=== PATIENT | female | born 1980 | race Caucasian/White ===

== ENCOUNTER 2022-02-22 15:29 | Emergency (ER) | payer BC, SELFPAY ==
[2022-02-22 16:10] VITALS: BP 125/80; PULSE 87; RESP 18; TEMP 36.4; O2SAT 99; BMI 35.9
--- NOTE | 2022-02-22 16:31 | ED_ITS ---
HPI - URI/Sore Throat General Time Seen by Provider: 16:31 Date Seen: 02/22/22 Chief Complaint: Cough Stated Complaint: Congested, cough, short of breath Time Seen by Provider: 02/22/22 16:31 Source: patient, RN notes reviewed and old records reviewed Mode of arrival: ambulatory Limitations: no limitations History of Present Illness HPI Narrative: Lore is a 41-year-old female with a history of questionable asthma usually implying her rescue inhaler of albuterol only twice a year who notes ongoing difficulty with breathing and a cough. Patient notes that her child has had similar symptoms and she had the onset of a cough 48 hours ago on MondayFebruary 20. She has been using her inhaler frequently. This is associated with a runny nose but no fever. Patient denies vomiting or abdominal pain. She does feel like he is wheezing. She gets only temporary relief from the use of her albuterol. She notes that her chest gets very tight with the symptoms. No unusual lower extremity edema, history of heart problems or history of lower extremity edema or DVT. Patient notes that she has not been formally diagnosed with asthma but has had wheezing and was given an inhaler. Related Data Home Medications Medication Instructions Recorded Confirmed albuterol sulfate 90 mcg/actuation inhalation 02/22/22 aerosol inhaler cetirizine 10 mg tablet (24Hour 10 mg PO DAILY PRN 02/22/22 02/22/22 Allergy) Previous Rx's Medication Instructions Recorded albuterol sulfate 2.5 mg/0.5 mL 2.5 mg (0.5 mL) inhalation QID PRN 02/22/22 solution for nebulization #30 ea albuterol sulfate 2.5 mg/3 mL 2.5 mg (3 mL) inhalation Q6-8H PRN 02/22/22 (0.083 %) solution for nebulization #75 mL prednisone 20 mg tablet 20 mg PO BID #10 tabs 02/22/22 Allergies Allergy/AdvReac Type Severity Reaction Status Date / Time hydromorphone [From Dilaudid] Allergy Mild Verified 02/22/22 16:15 Review of Systems Status of ROS: Reports: 10 or more systems reviewed and unremarkable except as noted in History and below Const: Denies: fever or chills Eyes: Denies: change in vision ENMT: Denies: throat pain, throat swelling or difficulty swallowing Cardio: Reports: chest pain (Described as tightness but relieved by albuterol) and shortness of breath with exertion Resp: Reports: shortness of breath, cough and wheezing GI: Denies: abdominal pain, nausea, vomiting or difficulty swallowing : Denies: painful urination Musculo: Denies: back pain Neuro: Denies: headache or numbness in extremities Endo: Denies: excessive urination Allergy/Immuno: Reports: wheezing; Denies: throat swelling PFSH [facility] Medical History Allergy-induced asthma Surgical History History of delivery History of mandibular surgery Social History Smoking Status: Never smoker How often do you have a drink containing alcohol: 2-4 times a month AUDIT-C Alcohol total score: 2 Non-prescribed substance use: denies use Exam Narrative: Exam Narrative: Patient is alert and oriented. Prior to my stepping in the room she had significant coughing. It does sound productive. Eyes are clear oral cavity with moist mucous membranes and neck is supple without lymphadenopathy. Heart with regular rate and rhythm. Patient has crackles in the right lower lung base and some mild expiratory wheezing. Heart with a regular rate and rhythm. Abdomen soft. Lower extremities without edema. Const: Vital Signs, click to edit/add: Vital Signs - 24 hr 02/22/22 16:10 Temperature 97.6 F Pulse Rate [Pulse Oximeter] 87 Respiratory Rate 18 Blood Pressure [Ri ght Upper Arm] 125/80 Pulse Oximetry 99 Oxygen Delivery Me thod Room Air Course Course Hospital Course: At this time COVID test is pending. Will add a chest x-ray and DuoNeb. Reevaluation(s) Reevaluation #1: DuoNeb seems to significantly helped cough. Chest x-ray by my read does not show any infiltrates. Did have a discussion with Lore regarding the use of prednisone. Lore states that she is her 3-1/2-year-old and is concerned about continuing this on prednisone. I was able to speak with OB nurses who were able to ascertain that small doses of prednisone were okay with breast feeding. Vital Signs Vital signs: Initial Vital Signs Temperature 97.6 F 02/22/22 16:10 Temperature Source Temporal Artery Scan 02/22/22 16:10 Pulse Rate 87 02/22/22 16:10 Respiratory Rate 18 02/22/22 16:10 Respiratory Effort 02/22/22 16:10 Respiratory Depth Normal 02/22/22 16:10 Respiratory Pattern 02/22/22 16:10 Blood Pressure 125/80 02/22/22 16:10 Blood Pressure Mean 95 02/22/22 16:10 Blood Pressure Position Supine 02/22/22 16:10 Pulse Oximetry 99 02/22/22 16:10 Oxygen Delivery Method 02/22/22 16:10 Vital Signs Temperature 97.6 F 02/22/22 16:10 Pulse Rate 87 02/22/22 16:10 Respiratory Rate 18 02/22/22 16:10 Blood Pressure 125/80 02/22/22 16:10 Pulse Oximetry 99 02/22/22 16:10 Oxygen Delivery Method 02/22/22 16:10 Temperature 97.6 F 02/22/22 16:10 Pulse Rate 87 02/22/22 16:10 Respiratory Rate 18 02/22/22 16:10 Blood Pressure 125/80 02/22/22 16:10 Pulse Oximetry 99 02/22/22 16:10 Oxygen Delivery Method 02/22/22 16:10 MDM - URI/Sore Throat MDM Narrative Medical decision making narrative: 1. URI-patient clearly has viral URI as her son has similar symptoms. She has tested negative for COVID at this time. Recommend [id number] Delsym as a cough medicine. Will also provide nebulizer with albuterol to be used q.4 hours p.r.n.. Patient may continue Zyrtec as per her routine. 2. Reactive airway exacerbation-would recommend prednisone 20 mg p.o. b.i.d. x5 days. 3. Disposition-patient is discharged home. Note that vital signs are without tachycardia or hypoxia or fever. Return or seek medical attention for worsening symptoms. Would recommend recheck of COVID status in 48 hours time. She was negative today but certainly symptoms are suggestive of COVID. Medical Records Attestation: I reviewed the patient's medical records. Lab Data Attestation: I reviewed the patient's lab results. Labs: Lab Results 10/11/22 Range/Units 16:30 SARS-CoV-2 (PCR) Negative SARS-CoV-2 (Negative) Imaging Data Chest x-ray: Attestation: I have reviewed the pertinent imaging results. My impression: Negative for infiltrate Radiologist's impression: Cardiovascular and mediastinum: Heart size and vasculature are normal in caliber and appearance. Lungs and pleural spaces: Lungs are clear. No sign of infiltrate or mass. No sign of pleural effusion. No pneumothorax. Bones and soft tissues: No significant findings. IMPRESSION: Unremarkable chest. Discharge Plan Discharge Clinical Impression: Exacerbation of RAD (reactive airway disease), URI (upper respiratory infection) Patient Disposition: Home, Self-Care Condition: Improved Additional Instructions: Prednisone as directed for 5 days. Albuterol nebulizer as needed every 4 hours. Delsym cough medicine as needed. Return for worsening symptoms. Prescriptions: New albuterol sulfate 2.5 mg/0.5 mL solution for nebulization 2.5 mg inhalation QID PRNQty: 30 0RF prednisone 20 mg tablet 20 mg PO BID Qty: 10 0RF albuterol sulfate 2.5 mg /3 mL (0.083 %) solution for nebulization 2.5 mg inhalation Q6-8H PRNQty: 75 0RF No Action albuterol sulfate 90 mcg/actuation HFA aerosol inhaler INHALATION cetirizine [24Hour Allergy] 10 mg tablet 10 mg PO DAILY PRN Follow Up/Referrals: Bisi Encinas MD [Primary Care Provider] - Stand Alone Forms: [employer] Info Instructions
--- NOTE | 2022-02-22 16:53 | CRLHL7_ITS ---
For Patients: As a result of the Century Cures Act, medical imaging exams and procedure reports are released immediately into your electronic medical record. You may view this report before your referring provider. If you have questions, please contact your health care provider. INDICATION: Cough. TECHNIQUE: Chest 1 view. COMPARISON: None. FINDINGS: Cardiovascular and mediastinum: Heart size and vasculature are normal in caliber and appearance. Lungs and pleural spaces: Lungs are clear. No sign of infiltrate or mass. No sign of pleural effusion. No pneumothorax. Bones and soft tissues: No significant findings. IMPRESSION: Unremarkable chest. Dictated by Сергей Knight MD @ 02/22/2022 6:09:08 PM (Electronically Signed)
[2022-02-22] MEDS: IPRAT-ALBUT 0.5-2.5 MG/3 ML NEB 1 NEB IH (17:13)
[2022-02-22 17:21] LABS: SARS PCR* Negative SARS-CoV-2 (Negative)
== END 2022-02-22 18:57 | disposition home or self-care (01) ==
PROVIDERS: Emergency Provider Family Medicine; PCP Family Medicine
DX: J06.9 Acute upper respiratory infection, unspecified (principal); J45.901 Unspecified asthma with (acute) exacerbation
CPT/HCPCS: 71045; 87635; 94640; 99284

== ENCOUNTER 2022-07-15 21:27 | Emergency (ER) | payer BC, SELFPAY ==
[2022-07-15 21:47] VITALS: BP 137/73; PULSE 89; RESP 18; TEMP 36.8; O2SAT 98; BMI 38.0
--- NOTE | 2022-07-15 21:57 | ED_ITS ---
HPI - SOB/Dyspnea General Chief Complaint: Cough Stated Complaint: Covid +, Oyx down below 80%, pulse was down 242 Time Seen by Provider: 07/15/22 21:47 History of Present Illness HPI Narrative: Pt is a 42 year old woman with a history of asthma who presents on day 5 of COVID. Pt has been feeling fairly well with a controlled cough. Pt has no fever or chills or hemoptysis. Pt checked her oxygen saturation earlier today and found that it was 80% on room air. This improved to normal shortly after with nebulizer treatments. Pt called the ambulance who found that her saturation was normal. Pt now has a saturation of 96% on room air and feels well. Pt is now feeling fine. No other issues. Related Data Home Medications Medication Instructions Recorded Confirmed cetirizine 10 mg tablet (24Hour 10 mg PO DAILY PRN 02/22/22 07/15/22 Allergy) fluticasone 500 mcg-salmeterol 50 1 inh inhalation BID 07/15/22 07/15/22 mcg/dose blistr powdr for inhalation (Advair Diskus) ipratropium 0.5 mg-albuterol 3 mg 3 ml inhalation Q6H PRN 07/15/22 07/15/22 (2.5 mg base)/3 mL nebulization soln nirmatrelvir 300 mg (150 mg 1 ea PO DIRECTED 07/15/22 07/15/22 x2)-ritonavir 100 mg tablet,dose pack(EUA) (Paxlovid) Allergies Allergy/AdvReac Type Severity Reaction Status Date / Time hydromorphone [From Dilaudid] Allergy Mild Verified 07/15/22 21:54 Review of Systems Status of ROS: Reports: 10 or more systems reviewed and unremarkable except as noted in History and below [facility] Medical History (Updated 07/15/22 @ 22:03 by Javon Rocha MD) Allergy-induced asthma Surgical History History of delivery History of mandibular surgery Social History Smoking Status: Never smoker How often do you have a drink containing alcohol: 2-4 times a month AUDIT-C Alcohol total score: 2 Non-prescribed substance use: denies use Exam Narrative: Exam Narrative: EXAM GENERAL: Patient appears comfortable and well. EYES: No scleral icterus. ENT: Tympanic membranes and oropharynx normal. THYROID: no thyroid nodules or thyromegaly. LYMPH: No supraclavicular or cervical lymphadenopathy. SKIN: Visible skin seen during exam normal or with benign process only. EXT: No dependent lower extremity pedal edema. HEART: Regular rate and rhythm with no murmurs, rubs, or gallops. LUNGS: Clear to auscultation bilaterally with no crackles or wheezes. ABD: Soft, non tender, non distended. PSYCH: Good eye contact, speech is not pressured. Const: Vital Signs, click to edit/add: Vital Signs - 24 hr 07/15/22 21:47 Temperature 98.2 F Pulse Rate [Right Pulse Oximeter] 89 Respiratory Rate 18 Blood Pressure [Ri ght Upper Arm] 137/73 Pulse Oximetry 98 Oxygen Delivery Me thod Room Air Course Course Hospital Course: Pt feeling well with normal vital signs. Vital Signs Vital signs: Initial Vital Signs Temperature 98.2 F 07/15/22 21:47 Temperature Source Temporal Artery Scan 07/15/22 21:47 Pulse Rate 89 07/15/22 21:47 Respiratory Rate 18 07/15/22 21:47 Blood Pressure 137/73 07/15/22 21:47 Blood Pressure Mean 94 07/15/22 21:47 Blood Pressure Position Sitting 07/15/22 21:47 Pulse Oximetry 98 07/15/22 21:47 Oxygen Delivery Method 07/15/22 21:47 Vital Signs Temperature 98.2 F 07/15/22 21:47 Pulse Rate 89 07/15/22 21:47 Respiratory Rate 18 07/15/22 21:47 Blood Pressure 137/73 07/15/22 21:47 Pulse Oximetry 98 07/15/22 21:47 Oxygen Delivery Method 07/15/22 21:47 Temperature 98.2 F 07/15/22 21:47 Pulse Rate 89 07/15/22 21:47 Respiratory Rate 18 07/15/22 21:47 Blood Pressure 137/73 07/15/22 21:47 Pulse Oximetry 98 07/15/22 21:47 Oxygen Delivery Method 07/15/22 21:47 MDM - SOB/Dyspnea MDM Narrative Medical decision making narrative: Pt presents with COVID and now a normal saturation on 5 day of her course. Pt feeling well. Exam and vitals normal. Recommend continued current care with follow up prn. Differential Diagnosis Differential diagnosis: Likely acute exacerbation of chronic obstructive airways disease, congestive heart failure, community acquired pneumonia, asthma with exacerbation and pulmonary embolism Medical Records Attestation: I reviewed the patient's medical records. Discharge Plan Discharge Clinical Impression: COVID-19 Patient Disposition: Home, Self-Care Condition: Stable Instructions: COVID-19 (Coronavirus Disease 2019) (ED) Prescriptions: No Action fluticasone propion-salmeterol [Advair Diskus] 500-50 mcg/dose blister with device 1 inh INHALATION BID Label Comments: INHALE 1 DOSE BY MOUTH TWICE DAILY ipratropium-albuterol 0.5 mg-3 mg(2.5 mg base)/3 mL solution for nebulization 3 ml INHALATION Q6H PRN Label Comments: USE 3 ML IN NEBULIZER EVERY 6 HOURS NEEDED FOR SHORTNESS OF BREATH Paxlovid (EUA) 300 mg (150 mg x 2)-100 mg tablets,dose pack 1 ea PO DIRECTED cetirizine [24Hour Allergy] 10 mg tablet 10 mg PO DAILY PRN Follow Up/Referrals: Bisi Encinas MD [Primary Care Provider] - Stand Alone Forms: [employer] Info Instructions
[2022-07-15 22:11] VITALS: PULSE 79; RESP 16; O2SAT 98
[2022-07-15 22:12] VITALS: BP 137/73; PULSE 79; RESP 16; TEMP 36.8
== END 2022-07-15 22:12 | disposition home or self-care (01) ==
LOC: ED 22:06
PROVIDERS: Emergency Provider Internal Medicine; PCP Family Medicine
DX: U07.1 COVID-19 (principal)
CPT/HCPCS: 99282; 99283

== ENCOUNTER 2022-11-16 14:51 | Emergency (ER) | payer BC, SELFPAY ==
[2022-11-16] VITALS (10 sets, daily range): BP systolic 125–146; BP diastolic 78–93; PULSE 66–88; RESP 16; TEMP 37.4; O2SAT 97–99; BMI 35.2
--- NOTE | 2022-11-16 15:29 | ED.GENADULT ---
HPI - General Adult General Time Seen by Provider: 15:31 Date Seen: 11/16/22 Chief complaint: Arrhythmia/Palpitations Stated complaint: Spiking heartrate, tightness in chest Time Seen by Provider: 11/16/22 14:56 Source: patient Mode of arrival: ambulatory Limitations: no limitations History of Present Illness HPI narrative: Patient is a 42-year-old female with history of exercise-induced asthma. She has had a history of irregular heart beat feeling, occasionally up to 125, no chest pain, no real shortness of breath. Patient felt transiently dizzy when this is happening and then feels better now. She is works for [employer], she has had no fevers chills or cough. She feels similar to have an irregular heartbeat like when she had COVID. She does have a temp of 99.3 but her O2 sat is excellent at 99% she has never had any bleeding or clotting problems. She takes albuterol and oral fluconazole some eater all. The patient denies productive cough or any cough no leg swelling or edema. Was going to go to urgent care and then decided come to ED. Related Data Home Medications Medication Instructions Recorded Confirmed cetirizine 10 mg tablet (24Hour 10 mg PO DAILY PRN 02/22/22 11/16/22 Allergy) fluticasone 500 mcg-salmeterol 50 1 inh inhalation BID 07/15/22 07/18/22 mcg/dose blistr powdr for inhalation (Advair Diskus) albuterol sulfate 90 mcg/actuation 2 puff inhalation Q6H PRN 07/18/22 11/16/22 aerosol inhaler Allergies Allergy/AdvReac Type Severity Reaction Status Date / Time hydromorphone [From Dilaudid] Allergy Mild Verified 11/16/22 15:06 Review of Systems Status of ROS: Reports: 6 or more systems reviewed and unremarkable except as noted in History and below [facility] Medical History (Updated 11/16/22 @ 15:35 by Radu Gay MD) Allergy-induced asthma ?J45.909 - Unspecified asthma, uncomplicated (ICD-10) Surgical History History of mandibular surgery ?Z98.890 - Other specified postprocedural states (ICD-10) History of delivery ?Z98.891 - History of uterine scar from previous surgery (ICD-10) Social History Smoking Status: Never smoker How often do you have a drink containing alcohol: 2-4 times a month AUDIT-C Alcohol total score: 2 Non-prescribed substance use: denies use Exam Narrative: Exam Narrative: Objective: Vital signs unremarkable O2 sat 99% on room air temp 99.3? HEENT is unremarkable Neck is supple Chest clear Heart rhythm regular no murmur occasional ectopic beat noted Abdomen benign soft nontender Extremities are no edema neurologic nonfocal Good peripheral perfusion Skin warm and dry Const: Vital Signs, click to edit/add: Vital Signs - 24 hr 11/16/22 15:01 11/16/22 15:17 11/16/22 15:18 Temperature 99.3 F Pulse Rate 76 73 Pulse Rate [Left P ulse Oximeter] 77 Respiratory Rate 16 Blood Pressure 130/93 H Blood Pressure [Le ft Upper Arm] 146/84 H Pulse Oximetry 99 98 97 Oxygen Delivery Me thod Room Air 11/16/22 15:30 11/16/22 15:32 11/16/22 15:45 Temperature Pulse Rate 71 70 88 Pulse Rate [Left P ulse Oximeter] Respiratory Rate Blood Pressure 125/87 Blood Pressure [Le ft Upper Arm] Pulse Oximetry 98 97 98 Oxygen Delivery Me thod 11/16/22 16:00 11/16/22 16:02 11/16/22 16:15 Temperature Pulse Rate 70 68 74 Pulse Rate [Left P ulse Oximeter] Respiratory Rate Blood Pressure 134/78 Blood Pressure [Le ft Upper Arm] Pulse Oximetry 97 97 97 Oxygen Delivery Me thod 11/16/22 16:30 Temperature Pulse Rate 66 Pulse Rate [Left P ulse Oximeter] Respiratory Rate Blood Pressure Blood Pressure [Le ft Upper Arm] Pulse Oximetry 98 Oxygen Delivery Me thod Course Vital Signs Vital signs: Initial Vital Signs Temperature 99.3 F 11/16/22 15:01 Temperature Source Temporal Artery Scan 11/16/22 15:01 Pulse Rate 77 11/16/22 15:01 Pulse Rhythm Regular 11/16/22 15:01 Pulse Strength 3+ Normal 11/16/22 15:01 Respiratory Rate 16 11/16/22 15:01 Blood Pressure 146/84 H 11/16/22 15:01 Blood Pressure Mean 104 11/16/22 15:01 Blood Pressure Position Sitting 11/16/22 15:01 Pulse Oximetry 99 11/16/22 15:01 Oxygen Delivery Method Room Air 11/16/22 15:01 Vital Signs Temperature 99.3 F 11/16/22 15:01 Pulse Rate 77 11/16/22 15:01 Respiratory Rate 16 11/16/22 15:01 Blood Pressure 146/84 H 11/16/22 15:01 Pulse Oximetry 99 11/16/22 15:01 Oxygen Delivery Method Room Air 11/16/22 15:01 Temperature 99.3 F 11/16/22 15:01 Pulse Rate 66 11/16/22 16:30 Respiratory Rate 16 11/16/22 15:01 Blood Pressure 134/78 11/16/22 16:02 Pulse Oximetry 98 11/16/22 16:30 Oxygen Delivery Method Room Air 11/16/22 15:01 Medical Decision Making MDM Narrative Medical decision making narrative: 42-year-old female with history of palpitations, some irregular heartbeat today, history of exercise-induced asthma. Patient has not had any wheezing or cough. She feels similar when she had COVID, so that will be repeated. Her lungs are clear to auscultation. I think be gupta to get a troponin give her aspirin. Will also get a D-dimer heme 4 basic 7, and other labs. I think she would also benefit from a Holter monitor. If her workup is negative then I think a Holter be appropriate. Addendum 4:30 p.m. patient's EKG by my read looks like normal sinus rhythm no acute ST T wave changes. The patient's D-dimer is negative, troponin point of care negative. Lab studies all look reassuring. Patient will get a Holter monitor for an outpatient assessment of any arrhythmia. She has had no arrhythmia in the ER. Recommend recheck with regular doctor in the next 2-3 days, return sooner problems or concerns she was comfortable this plan. Lab Data Labs: Lab Results 11/16/22 11/16/22 Range/Units 15:35 15:42 WBC 5.60 (4.50-11.00) K/uL RBC 4.73 (4.00-5.20) m/uL Hgb 14.3 (12.0-16.0) gm/dL Hct 42.5 (33.0-51.0) % MCV 90 (80-100) fL MCH 30 (26-34) pg MCHC 34 (32-36) gm/dL RDW Coeff of Dinh 11.9 (11.5-15.5) % Plt Count 212 (140-440) K/uL Neut % (Auto) 66.3 (42.0-72.0) % Lymph % (Auto) 23.2 (20-44) % [place] % (Auto) 8.8 (0.0-11.0) % Eos % (Auto) 1.3 (0.0-7.0) % Baso % (Auto) 0.2 (0.0-3.0) % Neut # (Auto) 3.72 (1.7-7.0) K/uL Lymph # (Auto) 1.30 (0.90-2.90) K/uL [place] # (Auto) 0.50 (0.00-0.90) K/UL Eos # (Auto) 0.07 (0.00-0.50) K/uL Baso # (Auto) 0.01 (0.00-0.30) K/uL D-Dimer Quant (PE/DVT) < 0.27 (0.00-0.50) ug/ml Sodium 137 (135-149) mmol/L Potassium 4.5 (3.6-5.1) mmol/L Chloride 100 (96-114) mmol/L Carbon Dioxide 28 (20-32) mmol/L BUN 16 (5-24) mg/dL Creatinine 0.8 (0.5-1.5) mg/dL Estimated Creat Clear 98.05 Estimated GFR 94 ml/min Glucose 105 (60-115) mg/dL Calcium 9.5 (8.4-10.6) mg/dL Total Bilirubin 0.5 (0.1-1.5) mg/dL Direct Bilirubin 0.0 (0.0-0.5) mg/dL AST 23 (12-35) U/L ALT 22 (4-35) U/L Alkaline Phosphatase 57 (40-150) U/L C-Reactive Protein 0.5 (0.5-1.0) mg/dL NT-Pro-B Natriuret Pep 25 pg/mL Total Protein 7.5 (6.0-8.3) g/dL Albumin 4.3 (3.3-5.0) g/dL SARS-CoV-2 (PCR) Negative SARS-CoV-2 (Negative) Influenza Type A (PCR) Negative PCR FLU A (Negative) Influenza Type B (PCR) Negative PCR FLU B (Negative) RSV (PCR) Negative PCR RSV (Negative) POC Troponin I 0.00 L (0.01-0.04) ng/ml Discharge Plan Discharge Clinical Impression: Palpitations, Allergy-induced asthma Patient Disposition: Home, Self-Care Condition: Improved Additional Instructions: Light activity, Holter monitor, drink plenty of fluids, continue her asthma medication. Recheck with primary care in the next 2-3 days, certainly sooner return to ED if problems or concerns. Activity Level: Light activity Discharge Diet: Regular Prescriptions: No Action albuterol sulfate 90 mcg/actuation HFA aerosol inhaler 2 puff inhalation Q6H PRN fluticasone propion-salmeterol [Advair Diskus] 500-50 mcg/dose blister with device 1 inh INHALATION BID Patient Comments: INHALE 1 DOSE BY MOUTH TWICE DAILY cetirizine [24Hour Allergy] 10 mg tablet 10 mg PO DAILY PRN Follow Up/Referrals: Bisi Encinas MD [Primary Care Provider] - Stand Alone Forms: [employer] Info Instructions
[2022-11-16] MEDS: ASPIRIN 81 MG TAB.CHEW 324 MG PO (15:43)
[2022-11-16 15:52] LABS: Basophils Absolute Auto 0.01 K/uL (0.00-0.30); Basophils Percent Auto 0.2 % (0.0-3.0); Eosinophils Absolute Auto 0.07 K/uL (0.00-0.50); Eosinophils Percent Auto 1.3 % (0.0-7.0); Hematocrit 42.5 % (33.0-51.0); Hemoglobin* 14.3 gm/dL (12.0-16.0); Immature Granulocytes Abs Auto 0.01 K/uL (0.00-0.30); Immature Granulocytes Pct Auto 0.2 %; Lymphocytes Percent Auto 23.2 % (20-44); Mean Corpuscular HGB Conc 34 gm/dL (32-36); Mean Corpuscular Hemoglobin 30 pg (26-34); Mean Corpuscular Volume 90 fL (80-100); Monocytes Percent Auto 8.8 % (0.0-11.0); Neutrophils Absolute Auto 3.72 K/uL (1.7-7.0); Neutrophils Percent Auto 66.3 % (42.0-72.0); Platelet Count* 212 K/uL (140-440); RDW Coefficient of Variation % 11.9 % (11.5-15.5); Red Blood Count 4.73 m/uL (4.00-5.20)
[2022-11-16 15:54] LABS: Slide Review Reflex No
[2022-11-16 16:08] LABS: Albumin* 4.3 g/dL (3.3-5.0)
[2022-11-16 16:09] LABS: Chloride* 100 mmol/L (96-114); Potassium* 4.5 mmol/L (3.6-5.1); Sodium* 137 mmol/L (135-149)
[2022-11-16 16:11] LABS: Alkaline Phosphatase* 57 U/L (40-150); Aspartate Amino Transferase* 23 U/L (12-35); Bilirubin Total* 0.5 mg/dL (0.1-1.5); Total Protein* 7.5 g/dL (6.0-8.3)
[2022-11-16 16:12] LABS: Alanine Aminotransferase* 22 U/L (4-35); Creatinine* 0.8 mg/dL (0.5-1.5); Est. Creatinine Clearance* 98.05; Estimated Glomerular Filt Rate 94 ml/min
[2022-11-16 16:13] LABS: Blood Urea Nitrogen* 16 mg/dL (5-24); Calcium* 9.5 mg/dL (8.4-10.6); Carbon Dioxide* 28 mmol/L (20-32); Glucose* 105 mg/dL (60-115)
[2022-11-16 16:16] LABS: C Reactive Protein* 0.5 mg/dL (0.5-1.0)
[2022-11-16 16:19] LABS: D Dimer Quantitative* < 0.27 ug/ml (0.00-0.50)
--- NOTE | 2022-11-16 16:19 | ED.NURSE ---
No tachycardia or ectopy noted thus far on cardiac monitoring.
[2022-11-16 16:27] LABS: NT Pro B Type NatriureticPept* 25 pg/mL
[2022-11-16 16:27] LABS: PCR FLU A Negative PCR FLU A (Negative); PCR FLU B Negative PCR FLU B (Negative); PCR RSV Negative PCR RSV (Negative)
[2022-11-16 16:28] LABS: SARS PCR* Negative SARS-CoV-2 (Negative)
== END 2022-11-16 17:01 | disposition home or self-care (01) ==
LOC: ED 15:39
PROVIDERS: Emergency Provider Family Medicine; PCP Family Medicine
DX: J45.901 Unspecified asthma with (acute) exacerbation (principal)
CPT/HCPCS: 36415; 80048; 80076; 83880; 84484; 85025; 85379; 86140; 87631; 93005; 93225; 93226; 94761; 99284; A9270

== ENCOUNTER 2024-01-03 09:40 | Emergency (ER) | payer BC, SELFPAY ==
[2024-01-03 09:49] VITALS: BP 144/88; PULSE 77; RESP 18; TEMP 36.1; O2SAT 100; BMI 35.4
--- NOTE | 2024-01-03 10:31 | CRLHL7_ITS ---
For Patients: As a result of the Century Cures Act, medical imaging exams and procedure reports are released immediately into your electronic medical record. You may view this report before your referring provider. If you have questions, please contact your health care provider. INDICATION: ABD PAIN TECHNIQUE: CT of the abdomen and pelvis was obtained with 118 mL of Isovue 370 intravenous contrast. Please note that all CT scans at this facility use dose modulation, iterative reconstruction, and/or weight-based dosing when appropriate to reduce radiation dose to as low as reasonably achievable. COMPARISON: None. FINDINGS: Lower thorax: Normal. Liver and biliary tree: Normal. Gallbladder: Normal. Spleen: Normal. Pancreas: Normal. Adrenal glands: Normal. Kidneys and ureters: No hydronephrosis. No obstructing renal calculi. Gastrointestinal tract: Normal appendix. No evidence of bowel obstruction. Peritoneal cavity: Trace free fluid within the pelvis. Bladder: Normal. Pelvic organs: Bilateral adnexal cystic lesions are favored to be physiologic. Vasculature: Normal. Lymph nodes: Normal. Abdominal wall: Trace fat containing periumbilical hernia. Musculoskeletal: Normal. IMPRESSION: 1. No acute intra-abdominal abnormality. 2. Bilateral adnexal cystic lesions are favored to be physiologic. Please note that all CT scans at this facility use dose modulation, iterative reconstruction, and/or weight-based dosing when appropriate to reduce radiation dose to as low as reasonably achievable. Dictated by Hector Rondon MD @ 01/03/2024 11:21:14 AM (Electronically Signed)
--- NOTE | 2024-01-03 10:33 | ED_ITS ---
HPI - General Adult General Chief complaint: Shortness of Breath/Dyspnea Stated complaint: Shortness of breath, nausea Time Seen by Provider: 01/03/24 10:12 History of Present Illness HPI narrative: Patient is a 43-year-old female with history of allergy induced asthma, she had a episode of shortness of breath yesterday was seen in the [facility] urgent care. Had a negative EKG, negative chest x-ray, negative laboratory studies by her report. I obtained records and reviewed them. She has had Holter monitor in the past about a year ago that was negative. She has episodic asthma flares, but it is also associated with shortness of breath. Marli very active day yesterday her was getting follow-up for a heart issue, she felt a little lightheaded and dizzy while at [employer] with her child did not have chest pain to feel short of breath. She had a workup at the urgent care. Few days prior she felt some abdominal distension and bloating and thinks that might have contributed to her shortness of breath. She also reports she gets a ?buzzing? feeling in her mid section chest and in her hands and feet occasionally with this episode. She has not been told she has anxiety or depression, has none of that in her family history. Related Data Home Medications ?Medication ?Instructions ?Recorded ?Confirmed cetirizine 10 mg tablet (24Hour 10 mg PO DAILY PRN 02/22/22 02/24/23 Allergy) fluticasone 500 mcg-salmeterol 50 1 inh inhalation BID 07/15/22 02/24/23 mcg/dose blistr powdr for inhalation (Advair Diskus) albuterol sulfate 90 mcg/actuation 2 puff inhalation Q6H PRN 07/18/22 02/24/23 aerosol inhaler amoxicillin 875 mg-potassium 1 tab PO BID 02/24/23 02/24/23 clavulanate 125 mg tablet epinephrine 0.3 mg/0.3 mL 0.3 ml IM ONCE PRN 02/24/23 02/24/23 injection, auto-injector prednisone 20 mg tablet 20 mg PO BID 02/24/23 02/24/23 Previous Rx's ?Medication ?Instructions ?Recorded benzonatate 200 mg capsule 200 mg PO TID PRN cough #30 caps 02/24/23 Allergies Allergy/AdvReac Type Severity Reaction Status Date / Time hydromorphone [From Dilaudid] Allergy Mild Verified 01/03/24 10:56 Review of Systems Status of ROS: Reports: 6 or more systems reviewed and unremarkable except as noted in History and below [facility] Medical History Allergy-induced asthma ?J45.909 - Unspecified asthma, uncomplicated (ICD-10) Surgical History History of mandibular surgery ?Z98.890 - Other specified postprocedural states (ICD-10) History of delivery ?Z98.891 - History of uterine scar from previous surgery (ICD-10) Social History Smoking Status: Never smoker How often do you have a drink containing alcohol: 2-4 times a month AUDIT-C Alcohol total score: 2 Non-prescribed substance use: denies use Exam Narrative: Exam Narrative: Objective patient's vital signs are largely within normal limits Alert or x3 noncyanotic no respiratory distress HEENT shows equal pupils, no scleral icterus, no facial asymmetry Neck is supple Chest clear no rales or wheezing Heart rhythm regular without murmur Abdomen benign soft nontender she feels it is mildly distended. No palpable masses. No peritonitis. Extremities are no edema, neurologic nonfocal Const: Vital Signs, click to edit/add: Vital Signs - 24 hr 01/03/24 09:49 Temperature 97.0 F L Pulse Rate [Right Pulse Oximeter] 77 Respiratory Rate 18 Blood Pressure [Ri ght Upper Arm] 144/88 H Pulse Oximetry 100 Oxygen Delivery Me thod Room Air Course Vital Signs Vital signs: Initial Vital Signs Temperature 97.0 F L 01/03/24 09:49 Temperature Source Temporal Artery Scan 01/03/24 09:49 Pulse Rate 77 01/03/24 09:49 Respiratory Rate 18 01/03/24 09:49 Blood Pressure 144/88 H 01/03/24 09:49 Blood Pressure Mean 106 H 01/03/24 09:49 Blood Pressure Position Sitting 01/03/24 09:49 Pulse Oximetry 100 01/03/24 09:49 Oxygen Delivery Method Room Air 01/03/24 09:49 Vital Signs Temperature 97.0 F L 08/21/24 09:49 Pulse Rate 77 01/03/24 09:49 Respiratory Rate 18 01/03/24 09:49 Blood Pressure 144/88 H 01/03/24 09:49 Pulse Oximetry 100 01/03/24 09:49 Oxygen Delivery Method Room Air 01/03/24 09:49 Temperature 97.0 F L 01/03/24 09:49 Pulse Rate 77 01/03/24 09:49 Respiratory Rate 18 01/03/24 09:49 Blood Pressure 144/88 H 01/03/24 09:49 Pulse Oximetry 100 01/03/24 09:49 Oxygen Delivery Method Room Air 01/03/24 09:49 Medications Administered Medications: Discontinued Medications Generic Name Dose Route Start Last Admin Trade Name Freq PRN Reason Stop Dose Admin Sodium Chloride 1,000 mls @ 6,000 mls/hr 01/03/24 10:30 01/03/24 11:05 0.9 % Sodium Chloride 1000 Ml IV 01/03/24 10:39 6,000 mls/hr .Q10M MAYTE Administration Medical Decision Making MDM Narrative Medical decision making narrative: [age] year white female with history of allergy induced asthma, with some shortness of breath yesterday and today with a tingling feeling in her extremities. She also has some abdominal bloating feeling. She thinks the abdominal symptoms or contributing her breathing issue. I think at this point would be gupta to check laboratory studies including sees heme 4 D-dimer CRP. I think could be gupta to get his CT scan of her abdomen 2 to make sure stent of mild diverticulitis or other inflammatory condition. If her workup and studies are negative today, I think given her presentation of the buzzing feeling the extremity tingling she should see Dr. Encinas for anxiety issues. Also think it be reasonable for her to take the prednisone she was prescribed as she did as shortness of breath for couple of days given she has history of asthma, she does have nebulizers at home was well. Addendum [address] scan shows physiologic changes the ovaries but no other acute finding. EKG shows normal sinus rhythm possibly left atrial enlargement but type limited quality EKG. Does not appear to show any acute changes. Lab studies look reassuring. I think the patient this point should continue her prednisone that she was to start continue using nebs as needed, recommend talk to Dr. Wisam Schneider about anxiety or other issues relating to her spells of shortness of breath and tingling this. Return to the ED as needed she and her comfortable plan. Lab Data Labs: Lab Results 01/03/24 01/03/24 Range/Units 10:31 10:40 WBC 7.84 (4.50-11.00) K/uL RBC 4.57 (4.00-5.20) m/uL Hgb 13.7 (12.0-16.0) gm/dL Hct 41.0 (33.0-51.0) % MCV 90 (80-100) fL MCH 30 (26-34) pg MCHC 33 (32-36) gm/dL RDW Coeff of Dinh 12.7 (11.5-15.5) % Plt Count 187 (140-440) K/uL Neut % (Auto) 81.5 H (42.0-72.0) % Lymph % (Auto) 13.9 L (20-44) % [place] % (Auto) 4.3 (0.0-11.0) % Eos % (Auto) 0.1 (0.0-7.0) % Baso % (Auto) 0.1 (0.0-3.0) % Neut # (Auto) 6.40 (1.7-7.0) K/uL Lymph # (Auto) 1.10 (0.90-2.90) K/uL [place] # (Auto) 0.30 (0.00-0.90) K/UL Eos # (Auto) 0.01 (0.00-0.50) K/uL Baso # (Auto) 0.01 (0.00-0.30) K/uL Abs Immat Gran (auto) 0.01 (0.00-0.30) K/uL Imm/Tot Granulo (auto) 0.1 % D-Dimer Quant (PE/DVT) 0.28 (0.00-0.50) ug/ml Sodium 138 (135-149) mmol/L Potassium 3.8 (3.6-5.1) mmol/L Chloride 106 (96-114) mmol/L Carbon Dioxide 24 (20-32) mmol/L Anion Gap 8 (7-15) mEq/L BUN 15 (5-24) mg/dL Creatinine 0.8 (0.5-1.5) mg/dL Estimated Creat Clear 93.78 Estimated GFR 93 ml/min Glucose 128 H (60-115) mg/dL Calcium 9.3 (8.4-10.6) mg/dL Total Bilirubin 0.7 (0.1-1.5) mg/dL Direct Bilirubin 0.2 (0.0-0.5) mg/dL AST 24 (12-35) U/L ALT 19 (4-35) U/L Alkaline Phosphatase 68 (40-150) U/L C-Reactive Protein < 0.5 L (0.5-1.0) mg/dL NT-Pro-B Natriuret Pep 98 pg/mL Total Protein 7.2 (6.0-8.3) g/dL Albumin 4.3 (3.3-5.0) g/dL SARS-CoV-2 (PCR) Negative SARS-CoV-2 (Negative) Influenza Type A (PCR) Negative PCR FLU A (Negative) Influenza Type B (PCR) Negative PCR FLU B (Negative) RSV (PCR) Negative PCR RSV (Negative) POC Troponin I 0.00 L (0.01-0.04) ng/ml Discharge Plan Discharge Clinical Impression: Allergy-induced asthma, Abdominal bloating Patient Disposition: Home w/ Parent or Adult Condition: Stable Additional Instructions: Light diet for 48 hours, fluids, start the prednisone, use nebs as needed, talk to her doctor about anxiety or other issues related year spells the been having. Return to ED as needed. Activity Level: Light activity Prescriptions: No Action albuterol sulfate 90 mcg/actuation HFA aerosol inhaler 2 puff inhalation Q6H PRN amoxicillin-pot clavulanate 875-125 mg tablet 1 tab PO BID prednisone 20 mg tablet 20 mg PO BID epinephrine 0.3 mg/0.3 mL auto-injector 0.3 ml IM ONCE PRN benzonatate 200 mg capsule 200 mg PO TID PRN (Reason: cough) Qty: 30 0RF fluticasone propion-salmeterol [Advair Diskus] 500-50 mcg/dose blister with device 1 inh INHALATION BID Patient Comments: INHALE 1 DOSE BY MOUTH TWICE DAILY cetirizine [24Hour Allergy] 10 mg tablet 10 mg PO DAILY PRN Follow Up/Referrals: Bisi Encinas MD [Primary Care Provider] - Stand Alone Forms: [employer] Info Instructions
[2024-01-03 10:50] LABS: Basophils Absolute Auto 0.01 K/uL (0.00-0.30); Basophils Percent Auto 0.1 % (0.0-3.0); Eosinophils Absolute Auto 0.01 K/uL (0.00-0.50); Eosinophils Percent Auto 0.1 % (0.0-7.0); Hemoglobin* 13.7 gm/dL (12.0-16.0); Immature Granulocytes Abs Auto 0.01 K/uL (0.00-0.30); Immature Granulocytes Pct Auto 0.1 %; Lymphocytes Percent Auto 13.9 % (20-44); Mean Corpuscular HGB Conc 33 gm/dL (32-36); Mean Corpuscular Hemoglobin 30 pg (26-34); Mean Corpuscular Volume 90 fL (80-100); Monocytes Percent Auto 4.3 % (0.0-11.0); Neutrophils Percent Auto 81.5 % (42.0-72.0); Platelet Count* 187 K/uL (140-440); RDW Coefficient of Variation % 12.7 % (11.5-15.5); Red Blood Count 4.57 m/uL (4.00-5.20); White Blood Count* 7.84 K/uL (4.50-11.00)
[2024-01-03 10:52] LABS: Slide Review Reflex No
[2024-01-03] MEDS: 0.9 % SODIUM CHLORIDE 1000 ml 1,000 ML 6000 ML IV (11:05)
[2024-01-03 11:11] LABS: Albumin* 4.3 g/dL (3.3-5.0); Chloride* 106 mmol/L (96-114)
[2024-01-03 11:12] LABS: Potassium* 3.8 mmol/L (3.6-5.1); Sodium* 138 mmol/L (135-149)
[2024-01-03 11:14] LABS: Creatinine* 0.8 mg/dL (0.5-1.5); Est. Creatinine Clearance* 93.78; Estimated Glomerular Filt Rate 93 ml/min
[2024-01-03 11:15] LABS: Alanine Aminotransferase* 19 U/L (4-35); Alkaline Phosphatase* 68 U/L (40-150); Anion Gap 8 mEq/L (7-15); Aspartate Amino Transferase* 24 U/L (12-35); Bilirubin Direct* 0.2 mg/dL (0.0-0.5); Bilirubin Total* 0.7 mg/dL (0.1-1.5); Blood Urea Nitrogen* 15 mg/dL (5-24); Carbon Dioxide* 24 mmol/L (20-32); Glucose* 128 mg/dL (60-115); Total Protein* 7.2 g/dL (6.0-8.3)
[2024-01-03 11:16] LABS: Calcium* 9.3 mg/dL (8.4-10.6)
[2024-01-03 11:26] LABS: PCR FLU A Negative PCR FLU A (Negative); PCR FLU B Negative PCR FLU B (Negative); PCR RSV Negative PCR RSV (Negative); SARS PCR* Negative SARS-CoV-2 (Negative)
[2024-01-03 11:27] LABS: C Reactive Protein* < 0.5 mg/dL (0.5-1.0); NT Pro B Type NatriureticPept* 98 pg/mL
[2024-01-03 11:59] LABS: D Dimer Quantitative* 0.28 ug/ml (0.00-0.50)
== END 2024-01-03 12:18 | disposition home or self-care (01) ==
PROVIDERS: Emergency Provider Family Medicine; PCP Family Medicine
DX: J45.998 Other asthma (principal); R14.0 Abdominal distension (gaseous)
CPT/HCPCS: 36415; 74177; 80048; 80076; 83880; 84484; 85025; 85379; 86140; 87631; 93005; 94761; 99284; 99285; J7030; Q9967

== ENCOUNTER 2024-11-23 12:07 | Emergency (ER) | payer BC, SELFPAY ==
[2024-11-23] VITALS (7 sets, daily range): BP systolic 120–132; BP diastolic 70–83; PULSE 56–97; RESP 10–18; TEMP 36.7; O2SAT 97–100; BMI 34.0
--- OUTSIDE RECORDS SUMMARY | 2024-11-23 12:09 | XMS_ITS | Clinical Summary ---
Author Organization [employer] Address [address] [place] [id number] Care Team Providers Care Procurement Specialist Name Role Phone Bisi Encinas MD Primary Care Prov ider Allergies Active Allergy Reactions Criticality Noted Date Comments Adhesive Contact Dermatitis,Intoleran ce-Can't Take,Irritation At Patch Site,Itching,Other - Describe In Comment Field 01/02/2024 Hydromorphone Hypotension 11/03/2016 Dust Mites Cough,Runny Nose Latex 04/13/2009 Ragweed Cough Sheep/Ovine/Irvin Containing Products Hives,Rash,Itching,C ough,Other - Describe In Comment Field,Wheezing Sheep Dander Sodium Hypochlorite Solution 08/25/2009 Bleach reaction-- swelling and severe eye irritation as well as lung irritation causing asthma flare Medications cetirizine (ZYRTEC) 10 mg tabletIndication s:Allergic rhinitis, cause unspecified Take 1 tablet by mouth once daily. 90 tablet 4 07/16/19 11 Active multivitamin-fol ic acid 0.4 mg (MULTIPLE VITAMIN) tablet Take 1 tablet by mouth once daily. 90 tablet 4 07/16/19 11 Active cholecalciferol (VITAMIN D) 1,000 unit capsule Take by mouth once daily. 1-2 daily for vit d deficiency and pain issues 180 capsule 4 07/16/19 11 Active inhalational spacing deviceIndication s:Cough, unspecified type For home use. Use with inhaler 1 Each 03/03/20 22 Active nebulizer accessories kitIndications:C ough, unspecified type Nebulizer mask/tubing/suppl ies For home use. Length of need: prn 1 Kit 04/11/20 23 Active albuterol HFA (PRO-AIR; VENTOLIN; PROVENTIL) 90 mcg/actuation inhalerIndicatio ns:Chest tightness Inhale 1-2 Puffs by mouth every 4 hours if needed for Shortness Of Breath or Wheezing. 1 Each 01/02/20 24 Active albuterol HFA 90 mcg/actuation inhalerIndicatio ns:Acute sinusitis, recurrence not specified, unspecified location Inhale 2 Puffs by mouth every 6 hours if needed for Shortness Of Breath. HOLD until patient calls 25.5 g 5 08/29/19 25 Active EPINEPHrine 0.3 mg/0.3 mL auto-injectorInd ications:Allergy to animal dander Inject 0.3 mg (1 Pen) intramuscular each time if needed for Allergic Reaction. HOLD until patient calls 2 Each 3 08/29/19 25 Active fluticasone furoate (Arnuity Ellipta) 100 mcg/actuation inhalerIndicatio ns:Exacerbation of asthma, unspecified asthma severity, unspecified whether persistent (HC) Inhale 1 Puff by mouth once daily. HOLD until patient calls 30 Each 08/29/19 25 Active hydrOXYzine HCL 25 mg tabletIndication s:Anxiety Take 1 Tablet (25 mg) by mouth every 6 hours if needed for Anxiety. HOLD until patient calls 30 Tablet 1 08/29/19 25 Active olopatadine 0.1 % ophthalmic solutionIndicati ons:Allergic conjunctivitis, bilateral Place 1 Drop into both eyes two times daily. 5 mL 08/29/19 25 Active ketorolac 0.5 % ophthalmic solutionIndicati ons:Allergic conjunctivitis, bilateral Place 1 Drop into both eyes four times daily. 10 mL 08/29/19 25 Active albuterol-ipratr opium (2.5-0.5 mg) in 3 mL NEBULIZATION solutionIndicati ons:Cough, unspecified type Inhale 3 mL via a nebulizer every 6 hours if needed for Shortness Of Breath. HOLD until patient calls 180 mL 3 08/29/19 25 Active albuterol 0.083% (2.5 mg/3 mL) neb solutionIndicati ons:Chest tightness,SOB (shortness of breath) Inhale 3 mL (2.5 mg) via a nebulizer every 4 hours if needed for Shortness Of Breath. HOLD until patient calls 180 mL 2 08/29/19 25 Active Active Problems Problem Noted Date Diagnosed Date Exacerbation of asthma 08/28/2024 Mixed hyperlipidemia 07/10/2023 Vitamin D deficiency 07/10/2023 Supervision of high-risk pre gnancy of elderly multigravida (>= 35 years old at time of delivery) 01/22/2018 Overview (08/08/2018): Estimated Date of Delivery: 08/30/18 Patient's last menstrual period was 07/24/2017. Last Tdap- 06/25/2018 Last Flu vaccine- 02/26/2018 Glucose (GTT) result- Component Latest Ref Rng & Units 05/28/2018 HEMOGLOBIN 12.0 - 16.0 g/dL 12.1 MCV 80 - 100 fL 94 GLUCOSE,GESTATIONAL 65 - 139 mg/dL 164 (H) Component Latest Ref Rng & Units 07/30/2018 08/06/2018 HEMOGLOBIN 12.0 - 16.0 g/dL 12.3 MCV 80 - 100 fL 92 Culture No Group B Streptococcus isolated. Allergies Allergen Reactions Dilaudid [Hydromorphone] Hypotension Dust Mites Cough and Runny Nose Latex Ragweed Cough Sheep/Ovine Containing Products Hives, Rash, Itching, Cough, Other - Describe In Comment Field and Wheezing Sheep Dander Sodium Hypochlorite Solution Bleach reaction-- swelling and severe eye irritation as well as lung irritation causing asthma flare Obstetric History T0 L0 SAB0 TAB0 Ectopic0 Multiple0 Live Births0 # Outcome Date GA Lbr James/2nd Weight Sex Delivery Anes PTL Lv 2 Current 1 AB 8w0d SPONTANEOUS FD Create lab flowsheet for OB labs- Component Latest Ref Rng & Units 01/22/2018 01/22/2018 01/22/2018 10:21 AM 10:21 AM 10:21 AM HEMOGLOBIN 12.0 - 16.0 g/dL 14.5 MCV 80 - 100 fL 90 ANTIBODY SCREEN Negative Negative SPECIMEN EXPIRATION DATE/TIME 01/25/18 23:59 VARICELLA ZOSTER IGG ANTIBODY Positive 837.7 RUBELLA IGG ANTIBODY HIV-1/HIV-2 ANTIBODY Non-Reactive Non-Reactive ABORH B Rh Positive HBSAG Nonreactive Nonreactive TREPONEMA PALLIDUM Negative Negative HEPATITIS C ANTIBODY Non-Reactive Non-Reactive Component Latest Ref Rng & Units 01/22/2018 01/22/2018 10:21 AM 10:21 AM HEMOGLOBIN 12.0 - 16.0 g/dL MCV 80 - 100 fL ANTIBODY SCREEN Negative SPECIMEN EXPIRATION DATE/TIME VARICELLA ZOSTER IGG ANTIBODY RUBELLA IGG ANTIBODY Positive 1.03 HIV-1/HIV-2 ANTIBODY Non-Reactive ABORH HBSAG Nonreactive TREPONEMA PALLIDUM Negative HEPATITIS C ANTIBODY Non-Reactive Past Medical History: Diagnosis Date ALLERGIC RHINITIS CAUSE UNSPECIFIED 11/21/2006 ASCUS with positive high risk HPV cervical 05/2015 [place]: TAMMIE 1 Low grade squamous intraepith lesion on cytologic smear cervix (lgsil) 11/2004 colp confirmed CIN1 reactive cellular changes since OBESITY 11/21/2006 BMI 33.8 TMJ DISORDRS OTHER SPECF 11/21/2006 improved Past Surgical History: Procedure Laterality Date COLPOSCOPY 07/03/2015 TAMMIE 1, Plan: Cotest @ 12 months, due 06/2016`~ Cotesting: both Negative, Plan: Cotest 07/2019 XR TEMPROMANDIBULAR JOINTS BILATERAL 2003 No data on file. Prenancy #2 Problems (from 01/22/18 to present) No problems associated with this episode. Ana Cristina Andres RNC.....01/24/2018 7:54 AM Female infertility associated with male factors 02/13/2016 TAMMIE I (cervical intraepithelial neoplasia I) Overview (04/02/2021): 11/2004 LSIL 01/2005 [place]: TAMMIE I 06/2005 NIL 03/2006 NIL 06/2008 NIL 06/2009 NIL 07/2010 ASCUS/HPV Negative 08/2011 NIL 08/2012 NIL 08/2013 NIL 05/2015 ASCUS/HPV+ 06/2015 [place]: TAMMIE I 08/2016 NIL/HPV Negative 08/2017 NIL 02/2021 NIL/HPV negative Plan: Routine screening ASCUS with positive high risk HPV cervical 05/15 Overview (08/29/2016): [place]: TAMMIE 1, cotest 05/2016 Pain medication agreement 11/21/2011 Chronic neck pain 05/25/2009 Pain Related to Psychological and Medical factor s. 05/19/2009 Other specified temporomandibular joint disorder s 11/21/2006 Obesity, unspecified 11/21/2006 Overview (11/21/2006): BMI 33.8 Allergic rhinitis, cause unspecified 11/21/2006 Resolved Problems Problem Noted Date Diagnosed Date Resolved Date Moderate persistent asthma with exacerbation 4 07/24/2024 ASCUS with positive high risk HPV cervical 05/15/2015 08/29/2016 Overview (08/26/2016): [place]: TAMMIE 1 Encounters Date Type Department Care Team Description 08/28/2024 3:20 PM CDT Office Visit [facility] [address] [place] [address] Bisi Encinas MD Physical (44 yo female) 08/27/2024 Travel from Last 3 Months Immunizations Immunization Administration Dates Next Due COVID-19 VACCINE SPIKEVAX (M ODERNA 50MCG/0.5ML) 12YO+ PFS 04/05/2023 COVID-19 vaccine (Pfizer-Bio NTech 30mcg/0.3mL) 12YO+ BIVALENT PF, MDV 02/16/2022 COVID-19 vaccine (Pfizer-Bio NTech 30mcg/0.3mL) PF, MDV 03/03/2021,08/15/2020,07/25/2020 Hepatitis A (Adult) 11/19/2004,05/03/2004 Hepatitis B (Adult) 11/19/2004,06/22/2004,2003 INFLUENZA, IIV3 PF (AGE >= 6 MO) 03/16/2024 Influenza, IIV3 (Age >=3 years) 05/28/2012,02/10 Influenza, IIV4 04/05/2023, 2,03/08/2021,2019,02/25/2019,02/26/2018,06/26/2017,0 02/12/2016,06/23/2015 MMR 08/26/2018,03/12/1991 Td (Age >=7 Years) 05/03/2004 Tdap 06/25/2018,08/16/2011 Family History Medical History Relation Name Comments Hyperlipidemia Father Dad Hypertension Father Dad Cancer Maternal Aunt Cervical Cancer Maternal Grandmother Cervica l Hypertension Maternal Grandmother Other Maternal Grandmother pacemak er age 87 Allergies Mother Mom Good Health Mother Mom Cancer Other Cervical M Grea t grandmother Allergies Sister Sister Psychiatric illness Sister Sister ADHD Relation Name Status Comments Father Dad Alive Maternal Aunt Maternal Grandmother Mother Mom Alive Other Sister Sister Social History Tobacco Use Types Packs/Day Years Used Date Smoking Tobacco: Never Smokeless Tobacco: Never Tobacco Cessation:Counseling Given: Yes Alcohol Use Standard Drinks/Week Comments Yes 0 (1 standard drink = 0.6 oz pur e alcohol) Maybe once a month PHQ-2 Answer Date Recorded PHQ-2 TOTAL SCORE 0 08/28/2024 Social Connections Answer Date Recorded Do you often feel lonely or isolated from those around you? 0 07/24/2024 Financial Resource Strain Answer Date R ecorded Difficulty of Paying Living Expenses 3 07/24/2024 Difficulty of Paying Living Expenses Not on file 07/24/2024 Food Insecurity Answer Date Recorded Do you worry your food will run out before you are able to buy more? 1 07/24/2024 Transportation Needs Answer Date Record ed Does lack of transportation keep you from medica l appointments? 1 07/24/2024 Does lack of transportation keep you from work, meetings or getting things that you need? 1 07/24/2024 Housing Stability Answer Date Recorded What is your housing situation today? 1 07/24/2024 Utilities Answer Date Recorded Do you have trouble paying f or utilities (for example, heat, electricity, water, phone)? 1 07/24/2024 Comments No Sex and Gender Information Value Date Recorded Sex Assigned at Female 09/15/2020 7:06 AM CDT Legal Sex Female 5:25 AM [employer] Gender Identity Female 09/15/2020 7:06 AM CDT Sexual Orientation Not on file Obstetrics History Para Term AB IAB SAB Ectopic Multiple Livin g Live Births 2 1 1 1 Date Outcome GA Total Labor Labor/2nd/3rd Weight Sex Type Anes PTL Zamzam A1 A5 Name Clin AB 8w0 d SPONTA NEOUS Demis e Comments:Trisomy 13 no felisha on testing 019 Term 39w 1d Last Filed Vital Signs Vital Sign Reading Time Taken Comments Blood Pressure 138/82 08/28/2024 3:22 PM CDT Pulse 70 08/28/2024 3:22 PM CDT Temperature 36.6 C (97.9 F) 01/02/2024 7:02 PM CDT Respiratory Rate 18 01/02/2024 7:02 PM CDT Oxygen Saturation 100% 08/28/2024 3:22 PM CDT Inhaled Oxygen Concentration - - Weight 105.1 kg (231 lb 9.6 oz) 08/28/2024 3:22 PM CDT Height 175.9 cm (5' 9.25) 08/28/2024 3:22 PM CD T Body Mass Index 33.95 08/28/2024 3:22 PM CDT Plan of Treatment Health Maintenance Due Date Last Done Comments Colonoscopy through age 75 2024 Mammogram for age 45-75 2024 Influenza Vaccine (#1) 2025 , 04/05/2023, 02/16/2022, Additional history exists BMI (ht and wt on same day) for age 18+ 08/28/2025 08/28/2024, 07/10/2023, 03/11/2021, Additional history exists Depression screening for age 12+ 08/28/2025 08/28/2024, 07/10/2023, 03/11/2021, Additional history exists Pap test for age 21-65 03/11/2026 , 03/11/2021, 08/21/2017, Additional history exists Tetanus booster 06/25/2028 06/25/2018, 04/0 07/2011, 05/03/2004 Lipids for age 45-75 07/24/2028 07/25/2023, 11/23/2022, 08/15/2016, Additional history exists Hepatitis B series for 19+ Completed 11/19, 06/22/2004, 05/03/2004 HIV for age 15-65 Completed 01/22/2018, 10/17/2016 Hepatitis C screening for age 18-79 Completed 01/22/2018, 10/17/2016 COVID-19 vaccine series Completed 03/16/20 24, 04/05/2023, 02/16/2022, Additional history exists Pneumococcal series for age 6-49 Aged Out No longer eligible based on patient's age to complete this topic Procedures Procedure Name Priority Date/Time Associated Diagnosis Comments LIPID PANEL W REFLEX MEASURED LDL Routine 07/25/2023 7:50 AM CDT Mixed hyperlipidemia HPV HIGH RISK Routine 03/11/2021 4:24 PM CDT Pap smear for cervical cancer screening ANTI HIV 1/2 Routine 01/22/2018 10:21 AM CDT Supervision of high-risk of elderly multigravida (>= 35 years old at time of delivery) (HC) ANTI HCV Routine 01/22/2018 10:21 AM CDT Supervision of high-risk of elderly multigravida (>= 35 years old at time of delivery) (HC) from Last 3 Months or Most Recently Relevant to Health Maintenance Results * LIPID PANEL W REFLEX MEASURED LDL (07/25/2023 7:50 AM CDT) CHOLESTEROL,TOTAL 174 100 - 199 mg/dL 07/25/2023 5:54 PM CDT [facility] Comment: Cholesterol, Total Reference Ranges Desirable <200 mg/dL Borderline 200-239 mg/dL High >=240 mg/dL TRIGLYCERIDES 134 <150 mg/dL 07/25/2023 5:54 PM CDT [facility] HDL CHOLESTEROL 53 >40 mg/dL 5:54 PM CDT [facility] NON-HDL CHOLESTEROL 121 <145 mg/dl 07/25/2023 5:54 PM CDT [facility] CHOL/HDL RATIO 3.28 <4.50 07/25/2023 5:54 PM CDT [facility] LDL CHOLESTEROL 94 <=130 mg/dL 07/25/2023 5:54 PM CDT [facility] VLDL CHOLESTEROL 27 <=30 mg/dL 07/25/2023 5:54 PM CDT [facility] PROVIDER ORDERED STATUS RANDOM 07/25/2023 5:54 PM CDT [facility] Blood BLOOD SPECIMEN / Unknown Venipuncture / Unknown 07/25/2023 7:50 AM CDT 07/25/2023 7:52 AM CDT Elle LÓPEZ CHEMISTRY Final Res ult [facility] [address] [place] [address], * HPV HIGH RISK (03/11/2021 4:24 PM CDT) TYPE 16 Negative Negative 03/16/2021 11:34 AM CDT [facility] TYPE 18 Negative Negative 03/16/2021 11:34 AM CDT [facility] OTHER HIGH RISK TYPES Negative Negative 03/16/2021 11:34 AM CDT [facility] Other (Cervical) Non-Blood / Unknown 03/11/2021 4:24 PM CDT 03/12/2021 11:37 AM CDT Narrative [facility] - 03/16/2021 11:34 AM CDT HPV types 16, 18, 31, 33, 35, 39, 45, 51, 52, 56, 58, 59, 66 and 68 DNA were undetectable or below the pre-set threshold. Methodology: Mattie Orlando 4800 HPV Test Bisi Encinas MD MICROBIOLOGY Fi nal Result [facility] [address] [place] [address], [place] * ANTI HCV (01/22/2018 10:21 AM CDT) HEPATITIS C ANTIBODY Non-React lyubov Non-React lyubov 01/22/2018 5:20 PM CDT [facility] Comment:Antibodies to HCV no t detected; does not exclude the possibility of exposure to HCV. Blood BLOOD SPECIMEN / Unknown Venipuncture / Unknown 01/22/2018 10:21 AM CDT 01/22/2018 10:21 AM CDT Bisi Encinas MD SEND OUTS Fi nal Result Performing Organization Address City/[facility]/ZIP Co de Phone Number [facility] [address] [place] [address], * ANTI HIV 1/2 (01/22/2018 10:21 AM CDT) HIV-1/HIV-2 ANTIBODY Non-Reacti ve Non-Reacti ve 01/22/2018 5:24 PM CDT [facility] Comment:HIV-1 p24 and HIV-1/ HIV-2 Ab not detected. Blood BLOOD SPECIMEN / Unknown Venipuncture / Unknown 01/22/2018 10:21 AM CDT 01/22/2018 10:22 AM CDT Bisi Encinas MD SEND OUTS Fi nal Result Performing Organization Address [facility] Co de Phone Number [facility] [address] from Last 3 Months or Most Recently Relevant to Health Maintenance Insurance [facility] [place] WORKERS COMP WC WORKERS COMP * Guarantor: [employer] Account Type Relation to Patient Date of Phone Billing Address Personal/Family Employer Care Teams Procurement Specialist Relationship Specialty Start Date End Date Bisi Encinas MD [address] [facility] [id number] PCP - General Family Practice 07/15/11
--- NOTE | 2024-11-23 12:33 | ED.ALLEREA ---
HPI - Allergic Reaction General Time Seen by Provider: 12:33 Date Seen: 11/23/24 Chief complaint: Allergic Reaction Stated complaint: allergic reaction, used epipen Time Seen by Provider: 11/23/24 12:32 Source: patient and RN notes reviewed Mode of arrival: ambulatory Limitations: no limitations History of Present Illness HPI narrative: This 44-year-old female is coming in with tingling sensation and itching in her mouth. She was eating a yogurt with pineapple and passion fruit in it around 930 this morning when she started having symptoms of mouth tingling and itching. She later developed a swollen lip. She presumed it was pineapple that she was reacting to. She did take hydroxyzine 25 mg at 10:00 a.m., has this at home for anxiety. She subsequently took 2 Benadryl at 10:50 a.m. at home. Around 11:10 a.m. she did use an EpiPen that was made available to her. Her symptoms did improve. EMS was called but she did sign and come by private vehicle. She did notice the return of itchy sensation in her mouth starting to come back. She does not feel any swelling. She had no rash. She had no difficulty breathing. She felt a little nauseated earlier but no abdominal pain, no nausea now, no vomiting ever. She has never had an allergic reaction to food before. Does have some reported seasonal allergies. She has never had anything like this before. MD complaint: allergic reaction and facial swelling Related Data Home Medications ?Medication ?Instructions ?Recorded ?Confirmed cetirizine 10 mg tablet (24Hour 10 mg PO DAILY PRN 02/22/22 02/24/23 Allergy) fluticasone 500 mcg-salmeterol 50 1 inh inhalation BID 07/15/22 02/24/23 mcg/dose blistr powdr for inhalation (Advair Diskus) albuterol sulfate 90 mcg/actuation 2 puff inhalation Q6H PRN 07/18/22 11/23/24 aerosol inhaler epinephrine 0.3 mg/0.3 mL 0.3 ml IM ONCE PRN 02/24/23 02/24/23 injection, auto-injector hydroxyzine HCl 25 mg tablet 25 mg PO Q6H PRN anxiety 11/23/24 11/23/24 Previous Rx's ?Medication ?Instructions ?Recorded epinephrine 0.3 mg/0.3 mL 0.3 mg (0.3 mL) IM Q5-15M PRN #2 ea 11/23/24 injection, auto-injector prednisone 20 mg tablet 20 mg PO DAILY #3 tabs 11/23/24 Allergies Allergy/AdvReac Type Severity Reaction Status Date / Time hydromorphone (From Dilaudid) Allergy Mild Verified 01/03/24 10:56 Review of Systems Status of ROS Reports: 6 or more systems reviewed and unremarkable except as noted in History and below [facility] Medical History Allergy-induced asthma ?J45.909 - Unspecified asthma, uncomplicated (ICD-10) Surgical History History of mandibular surgery ?Z98.890 - Other specified postprocedural states (ICD-10) History of delivery ?Z98.891 - History of uterine scar from previous surgery (ICD-10) Social History Smoking Status: Never smoker How often do you have a drink containing alcohol: 2-4 times a month AUDIT-C Alcohol total score: 2 Non-prescribed substance use: denies use Exam Const: Vital Signs, click to edit/add: Vital Signs - 24 hr 11/23/24 12:20 11/23/24 12:21 11/23/24 12:30 Temperature 98.0 F Pulse Rate 75 Pulse Rate [Pulse Oximeter] 97 Respiratory Rate 18 Blood Pressure Blood Pressure [Ri ght Upper Arm] 132/83 Pulse Oximetry 99 97 97 Oxygen Delivery Me thod Room Air 11/23/24 13:00 11/23/24 13:30 11/23/24 14:27 Temperature Pulse Rate 65 62 62 Pulse Rate [Pulse Oximeter] Respiratory Rate 10 L Blood Pressure 120/70 Blood Pressure [Ri ght Upper Arm] Pulse Oximetry 100 98 99 Oxygen Delivery Me thod 11/23/24 15:00 Temperature Pulse Rate 56 L Pulse Rate [Pulse Oximeter] Respiratory Rate Blood Pressure Blood Pressure [Ri ght Upper Arm] Pulse Oximetry 99 Oxygen Delivery Me thod This 44-year-old female is alert, interactive, no apparent distress. She is ambulatory into the ED of her own accord. Pupils equal round reactive, sclerae clear, face atraumatic, no rash. There is no noted lip swelling, oropharynx appears normal, no tongue or oral pharyngeal swelling. Her posterior pharynx is normal. Her voice is completely normal, no hoarseness. Neck supple, no adenopathy, no thyromegaly masses or nodules. Lungs are clear, good air entry, no wheezing or crackles, no tachypnea, no accessory muscle use. CV regular rate and rhythm, no murmur, normal S1-S2. Abdomen is soft, nontender, nondistended, no organomegaly. Skin visualized without any rash, certainly no hives noted. Documenting provider has reviewed patient's vital signs: yes Course Course ED Course: Reviewed with Lore that this certainly sounds like allergic reaction. It presumably may be pineapple but have discussed with her that she should take up photo copy of the listed ingredients, probably avoid these foods. I would recommend allergy follow-up for further testing at some point. While here, she will be monitored on pulse oximetry and cardiac monitoring to ensure no recurrence of reaction. Given that she is feeling a little sensation in her mouth do think we should do IV Benadryl which I will give 25 mg, 40 mg oral prednisone, 20 mg IV Pepcid in 10 mg oral Zyrtec. Plan will be to watch for 4 hours and if she remains symptom free, will discharge at that time. Reevaluation(s) Time of Reevaluation #1: 13:57 Reevaluation #1: Patient is feeling back to baseline. The symptoms that were ?creeping up on her? when she got here are all gone. We discussed monitoring for a total of 4 hours from the epinephrine injection. She is fine with that. Vital Signs Vital signs: Initial Vital Signs Pulse Oximetry 99 11/23/24 12:20 Vital Signs Pulse Oximetry 99 11/23/24 12:20 Temperature 98.0 F 11/23/24 12:21 Pulse Rate 56 L 11/23/24 15:00 Respiratory Rate 10 L 11/23/24 14:27 Blood Pressure 120/70 11/23/24 14:27 Pulse Oximetry 99 11/23/24 15:00 Oxygen Delivery Method Room Air 11/23/24 12:21 Medications Administered Medications: Discontinued Medications Generic Name Dose Route Start Last Admin Trade Name Dharmesh PRN Reason Stop Dose Admin Cetirizine HCl 10 mg 11/23/24 12:39 11/23/24 12:53 Cetirizine Hcl 10 Mg Tablet PO 11/23/24 12:40 10 mg ONCE ONE Administration Diphenhydramine HCl 25 mg 11/23/24 12:38 11/23/24 13:00 Diphenhydramine 50 Mg/Ml Inj IVP 11/23/24 12:39 25 mg ONCE ONE Administration Famotidine 20 mg 11/23/24 12:38 11/23/24 12:56 Famotidine 10 Mg/Ml Inj IVP 11/23/24 12:39 20 mg ONCE ONE Administration Prednisone 40 mg 11/23/24 12:38 11/23/24 12:53 Prednisone 20 Mg Tablet PO 11/23/24 12:39 40 mg ONCE ONE Administration Discharge Plan Discharge Clinical Impression: Allergic reaction Patient Disposition: Home, Self-Care Condition: Stable Instructions: General Allergic Reaction (ED) Additional Instructions: I do recommend that you follow-up with your primary care provider within the next week, discuss referral for allergy consultation for further testing. Do recommend taking a picture of the ingredients of what you were eating when you had this reaction. You can provide this information to your physician or time recorder. Do recommend taking prednisone as prescribed for a couple more days, next dose due tomorrow. I also recommend taking 10 mg of Claritin or Zyrtec daily for the next 3 days starting tomorrow. Have sent prescription in for EpiPen to be used for any recurrent reaction. If you do need to use your EpiPen, it is recommended that you seek medical evaluation. Activity Level: No Restrictions Prescriptions: New epinephrine 0.3 mg/0.3 mL auto-injector 0.3 mg IM Q5-15M PRNQty: 2 0RF Rx Instructions: do not exceed 3 doses per episode prednisone 20 mg tablet 20 mg PO DAILY Qty: 3 0RF No Action albuterol sulfate 90 mcg/actuation HFA aerosol inhaler 2 puff inhalation Q6H PRN epinephrine 0.3 mg/0.3 mL auto-injector 0.3 ml IM ONCE PRN fluticasone propion-salmeterol [Advair Diskus] 500-50 mcg/dose blister with device 1 inh INHALATION BID Patient Comments: INHALE 1 DOSE BY MOUTH TWICE DAILY cetirizine [24Hour Allergy] 10 mg tablet 10 mg PO DAILY PRN hydroxyzine HCl 25 mg tablet 25 mg PO Q6H PRN (Reason: anxiety) Follow Up/Referrals: Bisi Encinas MD [Primary Care Provider, Family Practice] Stand Alone Forms: [facility] Info Instructions
[2024-11-23] MEDS: CETIRIZINE HCL 10 MG TABLET PO (12:53)
[2024-11-23] MEDS: FAMOTIDINE 10 MG/ML inj 20 MG IVP (12:56)
== END 2024-11-23 15:10 | disposition home or self-care (01) ==
PROVIDERS: Emergency Provider Family Medicine; PCP Family Medicine
DX: T78.1XXA Other adverse food reactions, not elsewhere classified, initial encounter (principal); R20.2 Paresthesia of skin
CPT/HCPCS: 94761; 96374; 96375; 99283; 99284; A9270; J1200; J1308; J7512

== ENCOUNTER 2024-12-24 13:47 | Emergency (ER) | payer BC, SELFPAY ==
--- OUTSIDE RECORDS SUMMARY | 2024-12-24 13:50 | XMS_ITS | Clinical Summary ---
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 HOLD until patient calls 30 Each 11 08/29/19 25 Active hydrOXYzine HCL 25 mg [...] calls 180 mL 2 08/29/19 25 Active ondansetron (ZOFRAN) 4 mg tablet Take 4 mg by mouth every 8 hours if needed for Nausea/Vomiting. 11/26/19 25 Active Active Problems Problem Noted Date [...] with positive high risk HPV cervical 05/2015 [place]: TAMMIE 1 Low grade squamous intraepith lesion [...] problems associated with this episode. 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 TAMMIE I (cervical intraepithelial neoplasia I) Overview (04/02/2021): 11/2004 LSIL 01/2005 [place]: TAMMIE I 06/2005 NIL 03/2006 NIL 06/2008 NIL 06/2009 NIL 07/2010 ASCUS/HPV Negative 08/2011 NIL 08/2012 NIL 08/2013 NIL 05/2015 ASCUS/HPV+ 06/2015 [place]: TAMMIE I 08/2016 NIL/HPV Negative 08/2017 NIL 02/2021 NIL/HPV negative Plan: Routine screening ASCUS with positive high risk HPV cervical 05/15 Overview (08/29/2016): [place]: TAMMIE 1, cotest 05/2016 Pain medication agreement [...] risk HPV cervical 05/15/2015 08/29/2016 Overview (08/26/2016): [place]: TAMMIE 1 Encounters Date Type Department Care Team Description 12/08/2024 [facility] [address] [place], [place] [id number] Tanmay Sheriff MD Results 12/02/2024 10:00 AM CDT Office Visit [facility] [address] [place] [address] Tanmay Sheriff MD Allergies (FOOD ALLERGY (referred by Carmencita Colvin)) 12/01/2024 Travel 11/29/2024 9:00 AM CDT Office Visit [facility] [address] [place] [address] Carmencita Colvin PA ER Follow up (Allergic reaction, throat is still feeling irritated and having GI irritation/diarrhea. lots of nausea and bloating) 11/29/2024 Travel from Last 3 Months Immunizations Immunization Administration Dates Next Due COVID-19 VACCINE SPIKEVAX (M ODERNA 50MCG/0.5ML) 12YO+ PFS 04/05/2023 COVID-19 vaccine (FPW EnteprisesBio NTech 30mcg/0.3mL) 12YO+ BIVALENT PF, MDV 02/16/2022 COVID-19 vaccine (Pfizer-Bio NTech 30mcg/0.3mL) PF, MDV 03/03/2021,08/15/2020,07/25/2020 Hepatitis A (Adult) 11/19/2004,05/03/2004 Hepatitis B (Adult) 11/19/2004,06/22/2004,2003 INFLUENZA, IIV3 PF (AGE >= 6 MO) 03/16/2024 Influenza, IIV3 (Age >=3 years) 05/28/2012,02/10 Influenza, IIV4 04/05/2023,,03/08/2021,2019,02/25/2019,02/26/2018,06/26/2017,0 02/12/2016,06/23/2015 MMR 08/26/2018,03/12/1991 Td (Age >=7 Years) [...] AM CDT 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 Gender Identity Female 09/15/2020 7:06 AM CDT [...] Sign Reading Time Taken Comments Blood Pressure 126/76 12/02/2024 10:03 AM CDT Pulse 57 12/02/2024 10:03 AM CDT Temperature 36.9 C (98.5 F) 12/02/2024 10:03 AM CDT Respiratory Rate 18 01/02/2024 7:02 PM CDT Oxygen Saturation 100% 12/02/2024 10:03 AM CDT Inhaled Oxygen Concentration - - Weight 101.6 kg (224 lb) 12/02/2024 10:03 AM CDT Height 175.9 cm (5' 9.25) 12/02/2024 10:03 AM C DT Body Mass Index 32.84 12/02/2024 10:03 AM CDT Plan of Treatment Health Maintenance Due Date Last Done Comments Colonoscopy through age 75 2024 Mammogram for age 45-75 2024 Influenza Vaccine (#1) 2025 , 04/05/2023, 02/16/2022, Additional history exists Depression screening for age 12+ 08/28/2025 08/28/2024, 07/10/2023, 03/11/2021, Additional history exists BMI (ht and wt on same day) for age 18+ 12/02/2025 12/02/2024, 08/28/2024, 07/10/2023, Additional history exists Pap test for age 21-65 03/11/2026 , 03/11/2021, 08/21/2017, Additional history exists Tetanus booster 06/25/2028 06/25/2018, 04/0 07/2011, 05/03/2004 Lipids for age 45-75 07/24/2028 07/25/2023, 11/23/2022, 08/15/2016, Additional history exists Hepatitis B series for 19+ Completed 11/19, 06/22/2004, 05/03/2004 HIV for age 15-65 Completed 01/22/2018, 10/17/2016 Hepatitis C screening for age 18-79 Completed 01/22/2018, 10/17/2016 COVID-19 vaccine series Completed 03/16/20, 04/05/2023, 02/16/2022, Additional history exists Pneumococcal series for age 6-49 Aged Out No longer eligible based on patient's age to complete this topic Procedures Procedure Name Priority Date/Time Associated Diagnosis Comments BIRCH (T3) IGE Routine 12/02/2024 10:45 AM CDT Food allergy AVOCADO IGE Routine 12/02/2024 10:45 AM CDT Food allergy PINEAPPLE IGE Routine 12/02/2024 10:45 AM CDT Food allergy ARIK IGE Routine 12/02/2024 10:45 AM CDT Food allergy PEANUT (F13) IGE Routine 12/02/2024 10:4 5 AM CDT Food allergy [facility] MISCELLANEOUS SENDOUT Routine 12/02/2024 10:44 AM CDT Food allergy MISCELLANEOUS SEND OUT Routine 12/02/2024 10:44 AM CDT Food allergy LIPID PANEL W REFLEX MEASURED LDL Routine [...] Recently Relevant to Health Maintenance Results * ARIK IGE (12/02/2024 10:45 AM CDT) ARIK FRUIT (F91) IGE <0.10 kU/L [facility] ARIK FRUIT (F91) IGE CLASS 0 [facility] Blood BLOOD SPECIMEN / Unknown 12/02/2024 10:45 AM CDT 12/02/2024 10:46 AM CDT Tanmay Sheriff MD LABORATORY Final Resu lt [facility] [address] [place] [address], [facility] [address] [place] [address] * PINEAPPLE IGE (12/02/2024 10:45 AM CDT) PINEAPPLE (F210) IGE <0.10 kU/L [facility] PINEAPPLE (F210) IGE CLASS 0 [facility] Blood BLOOD SPECIMEN / Unknown 12/02/2024 10:45 AM CDT 12/02/2024 10:46 AM CDT Tanmay Sheriff MD SEND OUTS Final Resu lt Performing Organization Address [facility]/ZIP Co de Phone Number [employer] [facility] [address] [place] [address], [facility] [address] [place] [address] * AVOCADO IGE (12/02/2024 10:45 AM CDT) AVOCADO (F96) IGE <0.10 kU/L [facility] AVOCADO (F96) IGE CLASS 0 [facility] INTERPRETATION [facility] Comment: Specific Level of Allergen IGE Class kU/L Specific IGE Antibody ----- --------- 0 <0.10 Absent/Undetectable 0/1 0.10-0.34 Very Low Level 1 0.35-0.69 Low Level 2 0.70-3.49 Moderate Level 3 3.50-17.4 High Level 4 17.5-49.9 Very High Level 5 50-100 Very High Level 6 >100 Very High Level The clinical relevance of allergen results of 0.10-0.34 kU/L are undetermined and intended for specialist use. Allergens denoted with a include results using one or more analyte specific reagents. In those cases, the test was developed and its analytical performance characteristics have been determined by [employer]. It has not been cleared or approved by the U.S. Food and Drug Administration. This assay has been validated pursuant to the CLIA regulations and is used for clinical purposes. Blood BLOOD SPECIMEN / Unknown 12/02/2024 10:45 AM CDT 12/02/2024 10:46 AM CDT Tanmay Sheriff MD SEND OUTS Final Resu lt Performing Organization Address [facility]/ZIP Co de Phone Number [employer] [facility] [address] [place] [address], [place] [phone] [facility] [address] [place] [address] * BIRCH (T3) IGE (12/02/2024 10:45 AM CDT) BIRCH (T3) IGE <0.10 kU/L [facility] BIRCH (T3) IGE CLASS 0 [facility] Blood BLOOD SPECIMEN / Unknown 12/02/2024 10:45 AM CDT 12/02/2024 10:46 AM CDT Tanmay Sheriff MD SEND OUTS Final Resu lt [facility] [address] [facility] [place] [address], [place] [phone] [facility] [address] [facility] [place] [address] * PEANUT (F13) IGE (12/02/2024 10:45 AM CDT) Pathologist [facility] PEANUT (F13) IGE <0.10 kU/L [facility] PEANUT (F13) IGE CLASS 0 [facility] Blood BLOOD SPECIMEN / Unknown 12/02/2024 10:45 AM CDT 12/02/2024 10:46 AM CDT Tanmay Sheriff MD SEND OUTS Final Resu lt [facility] [address] [place] [address], [place] [phone] [facility] [address] [facility] [place] [address] * [facility] MISCELLANEOUS SENDOUT (12/02/2024 10:44 AM CDT) [facility] MISCELLANEOUS SEND OUT COMMENT 12/04/2024 4:08 PM CDT [facility] Comment: Test Ordered: [id number] Passion Fruit IgE Passion Fruit IgE <0.10 kU/L 01 Reference Range: <0.35 Class Interpretation 0 01 The test method is the [employer] ImmunoCAP allergen-specific IgE system. CLASS INTERPRETATION <0.10 kU/L= 0, Negative; 0.10 - 0.34 kU/L= 0/1, Equivocal/Borderline; 0.35 - 0.69 kU/L=1, Low Positive; 0.70 - 3.49 kU/L=2, Moderate Positive; 3.50 - 17.49 kU/L=3, High Positive; 17.50 - 49.99 kU/L= 4, Very High Positive; 50.00 - 99.99 kU/L= 5, Very High Positive; >99.99 kU/L=6, Very High Positive *This test was developed and its performance characteristics determined by [employer]. It has not been cleared or approved by the U.S. Food and Drug Administration. FLAG Interpretation: A = Abnormal, H = High, L = Low Other (Other) Non-Blood / Unknown 12/02/2024 10:44 AM CDT 12/02/2024 10:44 AM CDT Narrative [facility] ([facility]) - 12/04/2024 4:08 PM CDT Performed At: [address] [place] [address] [address] [place], [place] [id number] Mitchell George PhDBC Ph:[phone] Performed At: [address] [id number] Samantha Jefferson MD Ph:[phone] us Tanmay Sheriff MD LABORATORY Final Resu lt [facility] ([facility]) [address] [place] [id number] * MISCELLANEOUS SEND OUT (12/02/2024 10:44 AM CDT) TEST NAME Passion fruit, IgE 12/03/2024 7:20 AM CDT [facility] [employer] LABORAT[facility]-CE NTRAL LABORAT[facility] SOURCE Serum 12/03/2024 7:20 AM CDT [facility] LABORATORY PERFORMING LAB [facility] 12/03/2024 7:20 AM CDT [facility] LABORATORY REFERRAL LAB TEST # [id number] 12/03/2024 7:20 AM CDT [facility] LABOR[facility]ORY IS THIS A [facility] TEST? Yes, See [facility] Miscellaneous Sendout result 12/03/2024 7:20 AM CDT [facility] LAB[facility] Is this a Shannon Test? No 12/03/2024 7:20 AM CDT [facility] Other (Other) Non-Blood / Unknown 12/02/2024 10:44 AM CDT 12/02/2024 10:44 AM CDT us Tanmay Sheriff MD SEND OUTS Final Resu lt [facility] [address] [place] [address], * LIPID PANEL W REFLEX MEASURED LDL (07/25/2023 7:50 AM CDT) CHOLESTEROL,TOTAL 174 100 - 199 mg/dL 07/25/2023 5:54 PM CDT [facility] TRAL LABORATORY Comment: Cholesterol, Total Reference Ranges Desirable <200 mg/dL Borderline 200-239 mg/dL High >=240 mg/dL TRIGLYCERIDES 134 <150 mg/dL 07/25/2023 5:54 PM CDT [facility] TRAL LABORATORY HDL CHOLESTEROL 53 >40 mg/dL 5:54 PM CDT [facility] NON-HDL CHOLESTEROL 121 <145 mg/dl 07/25/2023 5:54 PM CDT [facility] CHOL/HDL RATIO 3.28 <4.50 07/25/2023 5:54 PM CDT [facility] LDL CHOLESTEROL 94 <=130 mg/dL 07/25/2023 5:54 PM CDT [facility] LAB[facility] VLDL CHOLESTEROL 27 <=30 mg/dL 07/25/2023 5:54 PM CDT [facility] LAB[facility] PROVIDER ORDERED STATUS RANDOM 07/25/2023 5:54 PM CDT [facility] Blood BLOOD SPECIMEN / Unknown Venipuncture / Unknown 07/25/2023 7:50 AM CDT 07/25/2023 7:52 AM CDT Elle LÓPEZ CHEMISTRY Final Res ult [facility] [address] [place] [address], * HPV HIGH RISK (03/11/2021 4:24 PM CDT) TYPE 16 Negative Negative 03/16/2021 11:34 AM CDT [facility] TRA LABORATORY TYPE 18 Negative Negative 03/16/2021 11:34 AM CDT [facility] OTHER HIGH RISK TYPES Negative Negative 03/16/2021 11:34 AM CDT [facility] Other (Cervical) Non-Blood / Unknown 03/11/2021 4:24 PM CDT 03/12/2021 11:37 AM CDT Narrative [facility] - 03/16/2021 11:34 AM CDT HPV types 16, 18, 31, 33, 35, 39, 45, 51, 52, 56, 58, 59, 66 and 68 DNA were undetectable or below the pre-set threshold. Methodology: Mattie Orlando 4800 HPV Test Bisi Encinas MD MICROBIOLOGY Fi nal Result [facility] [address] [place] [address], * ANTI HCV (01/22/2018 10:21 AM CDT) HEPATITIS C ANTIBODY Non-React lyubov Non-React lyubov 01/22/2018 5:20 PM CDT [facility] Comment:Antibodies to HCV no t detected; does not exclude the possibility of exposure to HCV. Blood BLOOD SPECIMEN / Unknown Venipuncture / Unknown 01/22/2018 10:21 AM CDT 01/22/2018 10:21 AM CDT Bisi Encinas MD SEND OUTS Fi nal Result [facility] [address] * ANTI HIV 1/2 (01/22/2018 10:21 AM CDT) HIV-1/HIV-2 ANTIBODY Non-Reacti ve Non-Reacti ve 01/22/2018 5:24 PM CDT [facility] TR[facility] LABORAT[facility] Comment:HIV-1 p24 and HIV-1/ HIV-2 Ab not detected. Blood BLOOD SPECIMEN / Unknown Venipuncture / Unknown 01/22/2018 10:21 AM CDT 01/22/2018 10:22 AM CDT Bisi Encinas MD SEND OUTS Fi nal Result Performing Organization Address [facility] Co de Phone Number [facility] [address] from Last 3 Months or Most Recently Relevant to Health Maintenance Insurance 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
--- NOTE | 2024-12-24 13:51 | ED_ITS ---
HPI - General Adult General Date Seen: 12/24/24 Chief complaint: Allergic Reaction Stated complaint: Allergic reaction,tongue swelling Time Seen by Provider: 12/24/24 13:50 History of Present Illness HPI narrative: 44 yo F presenting to the ER today with concern for allergic reaction and tongue swelling. Per medical record she was seen here in the ER about 2 weeks ago with a tingling sensation and itching in her mouth that occurred after she ate some yogurt with pineapple and passion fruit. Apparently the dictation she did not have any swelling. No rash. No trouble breathing. Her physician notes she did not have any objective visible swelling. Treated with IV Benadryl an oral prednisone. Recommended follow-up for allergy testing. Patient reports that she did have some ongoing GI upset lasting for a couple of weeks after laughs episode. She did see an branding specialist and initial testing was all negative for any allergies. She has a follow-up appointment scheduled which is can have further skin testing to see which she may be reacting to. She also has a lot of social stress. Her is a big source of stress for her. She also has a stressful job. It sounds like her relationship her is very difficult and she is anticipating a likely divorce. It sounds like he has chronic pain in his been difficult to live with for years. He then underwent a cardiac arrest about 6 months ago. He had a very long hospital stay and was finally discharged home from his [facility]CU rehab a couple of months ago. She notes that he is very anhedonic and not motivated. He is really not doing his PT your his physical therapy. He mostly stays on the couch. He does not participate in house work. He does not have a job. She feels like he has been relying her to care for him. Her or she was feeling normal this morning. She has not had any new meds, new allergies, new foods. She ate lunch at noon. She had repeated bread, hominis, all of tamponade which is something that she normally eats every day and in fact she had yesterday. After lunch she began to feel tingly burning in her tongue and noted it was swollen. It was swollen on both sides. She took Benadryl 50 mg p.o. and came here to the ER. She did not take her EpiPen. Now that she is here she says her tongue is going back to normal. She has no other symptoms today. No throat swelling. No trouble breathing. No chest pain. No abdominal pain. No nausea vomiting. No rash or hives. Related Data Home Medications ?Medication ?Instructions ?Recorded ?Confirmed cetirizine 10 mg tablet (24Hour 10 mg PO DAILY PRN 04/0511/25/24 Allergy) fluticasone 500 mcg-salmeterol 50 1 inh inhalation BID 07/15/22 11/25/24 mcg/dose blistr powdr for inhalation (Advair Diskus) albuterol sulfate 90 mcg/actuation 2 puff inhalation Q 6H PRN 07/18/22 11/25/24 aerosol inhaler epinephrine 0.3 mg/0.3 mL 0.3 ml IM ONCE PRN 02/24/23 11/25/24 injection, auto-injector hydroxyzine HCl 25 mg tablet 25 mg PO Q6H PRN anxiety 11/23/24 11/25/24 Previous Rx's ?Medication ?Instructions ?Recorded epinephrine 0.3 mg/0.3 mL 0.3 mg (0.3 mL) IM Q5-15M KS N #2 ea 11/23/24 injection, auto-injector prednisone 20 mg tablet 20 mg PO DAILY #3 tabs 11/23 ondansetron HCl 4 mg tablet 4 mg PO Q8H PRN nausea and 11/25/24 vomiting #14 tabs prednisone 20 mg tablet 60 mg (3 x 20 mg) PO DAILY 3 days 12/24/24 #9 tabs Allergies Allergy/AdvReac Type Severity Reaction Status Date / Time hydromorphone (From Dilaudid) Allergy Mild Verified 11/25/24 08:57 adhesive Allergy Verified 11/25/24 08:58 Bleach (Sodium Hypochlorite) Allergy Verified 11/25/24 08:58 latex Allergy Verified 11/25/24 08:58 [facility] Medical History Allergy-induced asthma ?J45.909 - Unspecified asthma, uncomplicated (ICD-10) Surgical History History of mandibular surgery ?Z98.890 - Other specified postprocedural states (ICD-10) History of delivery ?Z98.891 - History of uterine scar from previous surgery (ICD-10) Social History Smoking Status: Never smoker How often do you have a drink containing alcohol: 2-4 times a month AUDIT-C Alcohol total score: 2 Non-prescribed substance use: denies use Exam Narrative: Exam Narrative: Constitutional: Appears well-developed and well-nourished. Alert. Conversant. Non toxic. HENT: Head: Atraumatic. Nose: Nose normal. Mouth/Throat: Oral mucosa is clear and moist. no trismus. Pharynx normal. Tonsils symmetric. No tonsillar enlargement, erythema, or exudate. No tongue swelling or angioedema. Lips normal. Posterior oropharynx normal. Mallampati grade 2 Eyes: Conjunctivae normal. EOM normal. Pupils equal, round, and reactive to light. No scleral icterus. Neck: Normal range of motion. Neck supple. No tracheal deviation present. Cardiovascular: Normal rate, regular rhythm. No gallop. No friction rub. No murmur heard. Symmetric radial artery pulses Pulmonary/Chest: Effort normal. No stridor. No respiratory distress. No wheezes. No rales. No rhonchi . No tenderness. Abdominal: Soft.. No distension. No mass. No tenderness. No rebound. No guarding. Musculoskeletal: RUE: Normal range of motion. No tenderness. No deformity LUE: Normal range of motion. No tenderness. No deformity RLE: Normal range of motion. No edema. No tenderness. No deformity LLE: Normal range of motion. No edema. No tenderness. No deformity Lymph: No cervical adenopathy. Neurological: Alert and oriented to person, place, and time. Normal strength. CN II-VII intact. No sensory deficit. GCS eye subscore is 4. GCS verbal subscore is 5. GCS motor subscore is 6. Normal coordination Skin: Skin is warm and dry. No rash noted. No pallor. Normal capillary refill. Psychiatric: Normal mood. Normal affect. Endorses a lot of stress and frustration with her . Const: Vital Signs, click to edit/add: Vital Signs - 24 hr 12/24/24 13:55 12/24/24 15:26 Temperature 97.9 F Pulse Rate [Pulse Oximeter] 84 61 Respiratory Rate 18 18 Blood Pressure [Ri t Upper Arm] 137/82 124/86 Pulse Oximetry 97 97 Oxygen Delivery Me thod Room Air Room Air Course Course ED Course: Recheck-. Doing well. Tongue swelling resolved. Reevaluation(s) Reevaluation #1: Recheck-. Continues do well. She is comfortable discharging home with her sister. Vital Signs Vital signs: Initial Vital Signs Respiratory Effort Normal, Spontaneous, Non-Labored 12/24/24 13:48 Respiratory Depth Normal 12/24/24 13:48 Respiratory Pattern Normal 12/24/24 13:48 Vital Signs Temperature 97.9 F 12/24/24 13:55 Pulse Rate 84 12/24/24 13:55 Respiratory Rate 18 12/24/24 13:55 Blood Pressure 137/82 12/24/24 13:55 Pulse Oximetry 97 12/24/24 13:55 Oxygen Delivery Method Room Air 12/24/24 13:55 Temperature 97.9 F 12/24/24 13:55 Pulse Rate 61 12/24/24 15:26 Respiratory Rate 18 12/24/24 15:26 Blood Pressure 124/86 12/24/24 15:26 Pulse Oximetry 97 12/24/24 15:26 Oxygen Delivery Method Room Air 12/24/24 15:26 Medications Administered Medications: Discontinued Medications Generic Name Dose Route Start Last Admin Trade Name Freq PRN Reason Stop Dose Admin Prednisone 60 mg 12/24/24 14:29 12/24/24 14:38 Prednisone 20 Mg Tablet PO 12/24/24 14:30 60 mg ONCE ONE Administration Medical Decision Making [facility] Narrative Medical decision making narrative: Very pleasant 44-year-old female presenting to the ER today with an episode of tongue swelling that happened a couple of hours prior to arrival shortly after she had eaten lunch. She did not eat any new or unusual food and has no other new medications or exposures. She describes having tongue swelling. She had a similar episode about a month ago where she had swelling of her lips. She does not have any other symptoms today such as hives, trouble breathing, bronchospasm, wheezing on exam, abdominal pain, GI symptoms, other swollen body parts. Blood pressure is stable with no evidence for anaphylactic shock. Diffe rential here is broad including possible allergic reaction although with only isolated tongue swelling consider other etiologies such as angioedema. She says her tongue was definitely swollen home but is now gone back to normal after she took 50 mg of Benadryl at home. There is no objective swelling on initial and serial exams here in the ER and no signs of any evolving swelling or allergic reaction over several hours of observation here in the ER. Differential would also include anxiety attack causing circumoral numbness. She does have a lot of stressors, in particular with her 's poor health and they are strange relationship. There is no signs of any tongue infection or intraoral infection or Gerald's angina. No evidence for swelling of other airway structures such as the po sterior oropharynx or glottis. Overall, her airway definitely seems to be patent and her tongue is normal for several hours here in the ER. No signs of any evolving life-threatening allergic reaction or angioedema. With reasonable clinical confidence I think she is safe for careful monitoring at home. Since she did take antihistamine prior to arrival, would have her continue on and histamines for few more days and also steroids. She has not needed any EpiPen. She does have 1 home and can use it if she does develop signs of worsening swelling. Would recommend using her EpiPen and return to the ER with any worsening symptoms . Even if she gets better would recommend follow-up with her branding specialist and PCP. If her allergy testing ultimately comes back negative, may need to workup for potential causes of angioedema. Discharge Plan Discharge Clinical Impression: Tongue swelling Patient Disposition: Home, Self-Care Condition: Stable Instructions: Angioedema (ED), General Allergic Reaction (ED) Additional Instructions: As we discussed, I am glad that your tongue swelling has resolved. At this point it is not clear what caused your symptoms. This may have been an allergic reaction, but that is not a definitive diagnosis at this time since there is no other symptoms to go with the allergic reaction (such as hives, asthma attack, or anaphylactic shock). It is possible that your tongue swelling may have been related to another conditions such as angioedema. Here in the ER it is impossible to know for sure what caused this. For the next few days will put you back on some prednisone in case this was an allergic reaction. Continue to use her antihistamines if needed. Use your EpiPen if you have significant tongue swelling, oral swelling, or trouble breathing. Return to the ER right away if you need to use her EpiPen, or if youhave any worsening or concerning symptoms. Please follow-up with your regular doctor and/or your branding specialist for recheck within the next 5-7 days. Prescriptions: New prednisone 20 mg tablet 60 mg PO DAILY 3 Days Qty: 9 0RF No Action albuterol sulfate 90 mcg/actuation HFA aerosol inhaler 2 puff inhalation Q6H PRN epinephrine 0.3 mg/0.3 mL auto-injector 0.3 ml IM ONCE PRN ondansetron HCl 4 mg tablet 4 mg PO Q8H PRN (Reason: nausea and vomiting) Qty: 14 0RF fluticasone propion-salmeterol [Advair Diskus] 500-50 mcg/dose blister with device 1 inh INHALATION BID Patient Comments: INHALE 1 DOSE BY MOUTH TWICE DAILY cetirizine [24Hour Allergy] 10 mg tablet 10 mg PO DAILY PRN hydroxyzine HCl 25 mg tablet 25 mg PO Q6H PRN (Reason: anxiety) epinephrine 0.3 mg/0.3 mL auto-injector 0.3 mg IM Q5-15M PRNQty: 2 0RF Rx Instructions: do not exceed 3 doses per episode prednisone 20 mg tablet 20 mg PO DAILY Qty: 3 0RF Follow Up/Referrals: Bisi Encinas MD [Primary Care Provider, Family Practice] Stand Alone Forms: emoteShare Info Instructions
[2024-12-24 13:55] VITALS: BP 137/82; PULSE 84; RESP 18; TEMP 36.6; O2SAT 97; BMI 32.0
[2024-12-24 15:26] VITALS: BP 124/86; PULSE 61; RESP 18; O2SAT 97
== END 2024-12-24 17:18 | disposition home or self-care (01) ==
PROVIDERS: Emergency Provider Emergency Medicine; PCP Family Medicine
DX: R22.0 Localized swelling, mass and lump, head (principal)
CPT/HCPCS: 99283; 99284; J7512